=== PATIENT | female | born 1995 | race Caucasian/White ===

== ENCOUNTER 2022-09-07 12:14 | Emergency (ER) | payer OTHER, SELFPAY ==
[2022-09-07 12:32] VITALS: BP 139/87; PULSE 84; RESP 20; TEMP 36.9; O2SAT 100
--- NOTE | 2022-09-07 12:38 | ED.HEATRA ---
HPI - Head Injury General Chief complaint: Head Injury Stated complaint: Head injury at work on Thursday Time Seen by Provider: 09/07/22 12:43 Source: patient, RN notes reviewed and old records reviewed Mode of arrival: ambulatory Limitations: no limitations History of Present Illness HPI Narrative: 27-year-old female presents to the [facility] with complaints of a headache after a cardboard box fell on her head 2 days ago, Thursday. patient did not seek treatment. Denies any loss of consciousness. reports intermittent headaches since, when she had the same headache she gets a little dizzy. No blurry vision or change in vision. Patient is not on blood thinners. No bruising, swelling or redness noted to the top of her head where she reports pain. Related Data Home Medications Medication Instructions Recorded Confirmed No Home Medications 09/07/22 09/07/22 Allergies Allergy/AdvReac Type Severity Reaction Status Date / Time No Known Allergies Allergy Verified 09/07/22 12:44 Review of Systems Review of Systems: All systems reviewed & are unremarkable except as noted in HPI and below Constitutional: Constitutional: Reports no additional constitutional complaints, Denies chills and Denies fever(s) Eyes: Eyes: Reports no additional eye complaints ENT: Reports system reviewed and no additional complaints, except as documented Cardiovascular: Cardiovascular: Reports no additional cardiovascular complaints Respiratory: Respiratory: Reports no additional respiratory complaints Gastrointestinal: Gastrointestinal: Reports no additional gastrointestinal complaints Musculoskeletal: Musculoskeletal: Reports no additional musculoskeletal complaints Integumentary/Breasts: Skin/Breast: Reports system reviewed and no additional complaints, except as docu Neurologic: Reports as per HPI Psychiatric: Psychiatric: Reports no additional psychiatric complaints Allergic/Immunologic: Allergic/Immunologic: Reports no additional allergic/immunologic complaints PMFSH Comments At the time of my signature, I reviewed and agree with the nursing past medical, surgical, social, and family history. There is no relevant family history pertinent to the patient complaint. Exam Const: General: healthy appearing, comfortable, no acute distress, well developed, alert and well nourished Nutritional Appearance: well nourished and obese Orientation/consciousness: patient oriented x3 Limitations: no limitations HENMT: Head: normal to inspection Ears: external ears normal, TM's normal bilaterally and EAC's normal Face/Nose/Sinus: Normal external nose present and Normal nares present Face and sinus: normal facial exam Mouth: Yes Normal oral and palatal mucosa present, Yes lip normal and Yes moist mucous membranes Throat: posterior oropharynx normal and uvula midline Eyes: General: appearance normal, both eyes and all related structures Conjunctivae: conjunctivae normal Pupils: Equal, round and reactive pupils present EOM: EOMs intact bilaterally Direct Ophthalmoscopy: no photophobia Other: Lazy eye, born with, right Neck: Neck: normal visual inspection, full ROM, no lymphadenopathy and no meningeal signs Chest: Chest palpation & inspection: normal inspection of the chest Resp: Effort & Inspection: normal respiratory effort and no use of accessory muscles Auscultation: clear to auscultation bilaterally, no crackles, no rales, no rhonchi and no wheezes Cardio: Rate: regular rate Rhythm: regular rhythm GI: GI Palp: Yes Tenderness to palpation present (GI) Back/Spine/Pelvis: Cervical Spine: cervical ROM normal and No Cervical spine tenderness Thoracic/Lumbar Spine: thoracic and lumbar spine normal to inspection and thoraco-lumbar ROM normal Skin: General skin exam: normal color Rashes: no rashes Wounds: no wounds Neuro: General: patient oriented x3, moves all extremities, no meningeal signs and no focal motor deficits Cranial n
== END 2022-09-07 12:55 | disposition home or self-care (01) ==
PROVIDERS: Emergency Provider Nurse Practitioner
DX: S09.90XA Unspecified injury of head, initial encounter (principal); W20.8XXA Other cause of strike by thrown, projected or falling object, initial encounter
CPT/HCPCS: 99213; G0463

== ENCOUNTER 2025-03-08 17:08 | Emergency (ER) | payer OTHER, SELFPAY ==
--- OUTSIDE RECORDS SUMMARY | 2025-03-08 17:11 | XMS_ITS | Referral Summary ---
Author Organization [facility] Address [address] [place] [address] Care Team Providers Care Sleeve Machine Tender Name Role Phone Pranav Manzo MANDOLIN REPAIR PERSON Primary Care Provider [phone] Encounters Date Type Department Care Team Description 12/20/2024 10:30 AM DYE BLENDER Clinical Support Family Care at [address] [address] 12/16/2024 Telephone Family Care at [address] [address] Pranav Manzo NP Additional Services Or Orders 12/09/2024 Telephone [facility] [address] [address] Kimberly Sauer MD Myriad results from Last 3 Months Allergies No known active allergies Medications No known medications Active Problems Problem Noted Date Diagnosed Date Complete 11/21/2024 Assessment & Plan (11/21/2024 3:28 PM DYE BLENDER): Beta is negative Encounter for preconception consultation 025 Overview (11/21/2024): The pt is considering in the next year. To MVI No family history of neural tube defects or other defects. The patient was encouraged to be a healthy weight. The patient was encouraged to be in a healthy relationship She was encouraged to not use tobacco or marijuana. Varicella- she does not think she is vaccinated or had the chicken pox. To varicella and rubella titers Carrier screening discussed- they would like to do. To routine health maintenance labs Assessment & Plan (11/21/2024 3:29 PM DYE BLENDER): To rubella and varicella titers. To carrier screening. To routine labs Well woman exam 11/21/2024 Overview (11/21/2024): Lab: Pap:all normal No recent labs. Eric: Colonoscopy: BMD: Gardasil:did not have Assessment & Plan (11/21/2024 3:29 PM DYE BLENDER): Pap done. RTO 12m. I will send the results to the portal. If she has not heard in a week, to call the office. Morbid obesity with BMI of 40.0-44.9, adult 02/2024 Assessment & Plan (08/30/2024 2:34 PM DYE BLENDER): Wt Readings from Last 3 Encounters: 08/30/24 93.9 kg (207 lb) 03/01/24 90.1 kg (198 lb 9.6 oz) 01/06/23 90.7 kg (200 lb) BMI follow-up: Education provided Anxiety 02/23/2019 Assessment & Plan (08/30/2024 2:32 PM DYE BLENDER): Some increased anxiety with recent use of Mostly just nervous Continue to monitor, we did review SSRIs are safe in if needed Assessment & Plan (01/06/2023 2:23 PM CDT): Advised to wean off sertraline and follow up if not improving She can restart if not tolerating being off medication Assessment & Plan (07/08/2022 4:21 PM CDT): She will continue zoloft - this has been helpful and works well Chronic stable condition Assessment & Plan (08/07/2020 11:15 AM CDT): Pt states the 50 mg dose of zoloft has been helping. She should continue this dose and follow up in six months for evaluation Assessment & Plan (09/28/2019 12:24 PM DYE BLENDER): Condition stable Continue current medications Assessment & Plan (03/31/2019 8:07 AM CDT): - condition has improved with medication - continue zoloft and follow up in six months or sooner for any concerns Resolved Problems Problem Noted Date Diagnosed Date Resolved Date Less than 8 weeks gestation of 08/30/2024 11/21/2024 Assessment & Plan (08/30/2024 2:33 PM DYE BLENDER): Estimated last. Date 07/13/2024 Patient looking in to collet gluer (lives in [place] so looking at [facility]) Will place referral should that be needed Start vitamin daily Reviewed signs and symptoms to report Establish with collet gluer Class 2 severe obesity due t o excess calories with serious comorbidity and body mass index (BMI) of 38.0 to 38.9 in adult 07/08/2022 Assessment & Plan (03/01/2024 4:05 PM CDT): Plan for weight loss is to decrease calories in diet and increase activity Assessment & Plan (01/06/2023 2:22 PM CDT): Plan for weight loss is to decrease calories in diet and increase activity Assessment & Plan (07/08/2022 4:23 PM CDT): Plan for weight loss is to decrease calories in diet and increase activity BMI 31.0-31.9,adult 03/31/2019 08/30/20 24 Assessment & Plan (03/31/2019 8:07 AM CDT): - BMI too high, counseled on dietary approaches to lowering BMI, exercise approaches to lowering BMI, risk to health due to elevated BMI, healthy BMI level to trend toward. Acute costochondritis 01/13/20192024 Panic attack 01/13/2019 11/21/2024 Immunizations Immunization Administration Dates Next Due Influenza, Unspecified 10/09/2023(Deferr ed: Patient Refused),08/29/2023(Deferred: Patient Refused),05/26/2023(Deferred: Patient Refused),05/26/2023(Deferred: Patient Refused),01/06/2023(Deferred: Patient Refused),12/24/2021(Deferred: Patient Refused),07/26/2019(Deferred: Patient Refused),07/26/2018(Deferred: Patient Refused),07/26/2017(Deferred: Patient Refused) Tdap 07/08/2022(Deferred: Patient Ref used) Varicella 07/08/2022(Deferred: Patient Ref used) Social History Tobacco Use Types Packs/Day Years Used Date Smoking Tobacco: Never Smokeless Tobacco: Never Alcohol Use Standard Drinks/Week Comments Yes 0 (1 standard drink = 0.6 oz pur e alcohol) Humiliation, Afraid, Rape, and Kick questionnair e Answer Date Recorded Within the last year, have y ou been afraid of your partner or ex-partner? No 11/21/2024 Within the last year, have y ou been humiliated or emotionally abused in other ways by your partner or ex-partner? No Within the last year, have y ou been kicked, hit, slapped, or otherwise physically hurt by your partner or ex-partner? No 11/21/2024 Within the last year, have y ou been raped or forced to have any kind of sexual activity by your partner or ex-partner? 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 , Not on file Not on file Not on file Last Filed Vital Signs Vital Sign Reading Time Taken Comments Blood Pressure 122/80 11/21/2024 3:01 PM DYE BLENDER Pulse 89 08/30/2024 12:56 PM DYE BLENDER Temperature 36.7 C (98 F) 10/07/2022 2:38 PM DYE BLENDER Respiratory Rate 20 08/30/2024 12:56 PM DYE BLENDER Oxygen Saturation 97% 03/01/2024 10:19 AM CDT Inhaled Oxygen Concentration - - Weight 93.9 kg (207 lb) 11/21/2024 3:01 PM DYE BLENDER Height 152.4 cm (5') 11/21/2024 3:01 PM DYE BLENDER Body Mass Index 40.43 11/21/2024 3:01 PM DYE BLENDER Plan of Treatment Not on file Procedures Procedure Name Priority Date/Time Associated Diagnosis Comments PAP WITH REFLEX TO HIGH RISK HPV Routine 11/21/2024 9:43 AM DYE BLENDER Well woman exam SERUM HEPATITIS PANEL Routine 06/16/2013 12:14 PM CDT from Last 3 Months or Most Recently Relevant to Health Maintenance Results * Pap with reflex to High Risk HPV and Genotyping (Cytology Component) (11/21/2024 9:43 AM DYE BLENDER) Thin prep (Pap test) 11/21/2024 9:43 AM DYE BLENDER 11/22/2024 9:43 AM DYE BLENDER Narrative PATHOLOGY CH - 11/24/2024 9:16 AM DYE BLENDER [facility] Department of Pathology [address] [place] [address] Final Report Note to Patients: This report may contain a detailed description of human tissue sent by a health care provider to the laboratory for pathologic evaluation. The content of this report is essential for diagnosis and may provide important critical findings. This information may be unfamiliar to patients to review without a medical professional present. It is advised that the patient review this report in the presence of a health care provider who can answer questions and explain the details. Patient Name: MILAGROS SPIVEY Address: [address] [place] [address]- Gender: F : 1995 (Age: 29) Service: Location: [facility] #: [id number] Patient Type: SPECIMEN Taken: 11/21/2024 Received: 11/22/2024 Accessioned:: 11/22/2024 Reported: 11/24/2024 Physician(s): Kimberly Sauer M.D. Kimberly Sauer M.D. Diagnosis: SOURCE OF SPECIMEN Imaged Thinprep Pap Test w/ Reflex HPV - Production Inspector Cytologic Material: STATEMENT OF ADEQUACY - Satisfactory for evaluation; endocervical/transformation zone component present GENERAL CATEGORIZATION: - Negative for intraepithelial lesion or malignancy BORIS Fang(ASCP) Report Electronically Reviewed and Signed Out By BORIS Fang(ASCP) 11/24/2024 09:16:35Specimen(s) Received: A: Imaged Thinprep Pap Test w/ Reflex HPV - Production Inspector Cytologic Material Clinical History: Last Menstrual Period: 10/31/2024 The Pap test is a screening test used to aid in the detection of cervical cancer and its precursors. It should not be the sole means by which malignant and premalignant lesions are diagnosed. Both false negative and false positive results may occur. It also has poor sensitivity for the detection of endometrial lesions and should not be used to evaluate suspected endometrial abnormalities. For these reasons it is most important to obtain Pap tests at regular intervals. The performance characteristics of some immunohistochemical stains, fluorescence in-situ hybridization tests and immunophenotyping by flow cytometry cited in this report (if any) were determined by the Surgical Pathology Department at [facility] as part of an ongoing director quality systems program and in compliance with federally mandated regulations drawn from the Clinical Laboratory Improvement Act of 1988 (CLIA '88). Some of these tests rely on the use of analyte specific reagents and are subject to specific labeling requirements by the US Food and Drug Administration. Such diagnostic tests may only be performed in a facility that is certified by the Department of Health and Human Services as a high complexity laboratory under CLIA '88. The FDA has determined that such clearance or approval is not necessary. This test is used for clinical purposes. It should not be regarded as investigational or for research. Nevertheless, federal rules concerning the medical use of analyte specific reagents require that the following disclaimer be attached to the report: This test was developed and its performance characteristics determined by the Surgical Pathology Department [facility]. It has not been cleared or approved by the U. S. Food and Drug Administration. Kimberly Sauer MD LAB CYTOLOGY [place] [id number] [place] [address] * Serum Hepatitis panel (06/16/2013 12:14 PM CDT) HBV surface ag Negative Negative HISTO RICAL RESULTS HBV core ab, IgM Negative Negative HISTORICAL RESULTS HCV ab Negative Negative HISTORICAL RESULTS HAV ab, IgM Negative Negative HISTORIC AL RESULTS Serum 06/16/2013 12:1 4 PM CDT Lindsay Silva NP LAB BLOOD ORDERABLES Final Result HISTORICAL RESULTS from Last 3 Months or Most Recently Relevant to Health Maintenance Insurance [id number] CHOICE PLUS [facility] PPO [facility] HMO/PPO Address: [address] [place] [address] [facility] CHOICE PLUS Member Subscriber Plan / Payer (Ef fective 2024-Present) Name:Milagros Spivey Relation to Subscriber:Self Name:Milagros Spivey Payer ID:[id number] (IC) Type:[facility] HMO/PPO Address: [place] [phone] Care Teams Sleeve Machine Tender Relationship Specialty [place] [id number] [address] [facility] 2 [facility] [address] [place] [address] PCP - General Family Medicine 01/18/19
--- OUTSIDE RECORDS SUMMARY | 2025-03-08 17:11 | XMS_ITS | Clinical Summary ---
Author Organization [facility] Address [address] [place] [address] Care Team Providers Care Lead Refiner Name Role Phone Pranav Manzo NP Primary Care Provider [phone] Allergies No known active allergies Medications No known medications Active Problems Problem Noted Date Diagnosed Date Complete 11/21/2024 Assessment & Plan (11/21/2024 3:28 PM ELECTRONICS DETAIL DRAFTSPERSON): Beta is negative Encounter for preconception consultation [...] labs Assessment & Plan (11/21/2024 3:29 PM ELECTRONICS DETAIL DRAFTSPERSON): To rubella and varicella titers. To carrier screening. To routine labs Well woman exam 11/21/2024 Overview (11/21/2024): Lab: Pap:all normal No recent labs. Eric: Colonoscopy: BMD: Gardasil:did not have Assessment & Plan (11/21/2024 3:29 PM ELECTRONICS DETAIL DRAFTSPERSON): Pap done. RTO 12m. I will send the results to the portal. If she has not heard in a week, to call the office. Morbid obesity with BMI of 40.0-44.9, adult 02/2024 Assessment & Plan (08/30/2024 2:34 PM ELECTRONICS DETAIL DRAFTSPERSON): Wt Readings from Last 3 Encounters: 08/30/24 93.9 kg (207 lb) 03/01/24 90.1 kg (198 lb 9.6 oz) 01/06/23 90.7 kg (200 lb) BMI follow-up: Education provided Anxiety 02/23/2019 Assessment & Plan (08/30/2024 2:32 PM ELECTRONICS DETAIL DRAFTSPERSON): Some increased anxiety with recent use of [...] evaluation Assessment & Plan (09/28/2019 12:24 PM ELECTRONICS DETAIL DRAFTSPERSON): Condition stable Continue current medications Assessment & Plan (03/31/2019 8:07 AM CDT): - condition has improved with medication - continue zoloft and follow up in six months or sooner for any concerns Resolved Problems Problem Noted Date Diagnosed Date Resolved Date Less than 8 weeks gestation of 08/30/2024 11/21/2024 Assessment & Plan (08/30/2024 2:33 PM ELECTRONICS DETAIL DRAFTSPERSON): Estimated last. Date 07/13/2024 Patient looking in to international relations professor (lives in [place] so looking at [place] or [facility]) Will place referral should that be needed Start vitamin daily Reviewed signs and symptoms to report Establish with international relations professor Class 2 severe obesity due t o excess calories with serious comorbidity and body mass index (BMI) of 38.0 to 38.9 in adult 07/08/2022 4 Assessment & Plan (03/01/2024 4:05 PM CDT): [...] Acute costochondritis 01/13/20192024 Panic attack 01/13/2019 11/21/2024 Encounters Date Type Department Care Team Description 12/20/2024 10:30 AM ELECTRONICS DETAIL DRAFTSPERSON Clinical Support Family Care at [address] [address] 12/16/2024 Telephone [facility] at [address] [address] Pranav Manzo NP Additional Services Or Orders 12/09/2024 Telephone [facility] [employer] [address] [place] [phone] Kimberly Sauer MD Myriad results from Last 3 Months Immunizations Immunization Administration Dates Next Due Influenza, Unspecified 10/09/2023(Deferr ed: Patient Refused),08/29/2023(Deferred: Patient Refused),05/26/2023(Deferred: Patient Refused),05/26/2023(Deferred: Patient Refused),01/06/2023(Deferred: Patient Refused),12/24/2021(Deferred: Patient Refused),07/26/2019(Deferred: Patient Refused),07/26/2018(Deferred: Patient Refused),07/26/2017(Deferred: Patient Refused) Tdap 07/08/2022(Deferred: Patient Ref used) Varicella 07/08/2022(Deferred: Patient Ref used) Medical History Medical History Date Comments Anxiety Panic attack 01/13/2019 Family History Medical History Relation Name Comments Other Father Alive and well; Bone cancer Father's Brother 2 Cancer; C ause of : Cancer Hypertension Mother Hypertension; Bone cancer Paternal Grandfather Cancer; Heart disease Paternal Grandfather Heart disease; Hypertension Paternal Grandfather Hyperte nsion; Other Paternal Grandmother Alive a nd well; Cancer Neg Hx no colon, breas t or demonstrator sewing techniques cancer cmt 11/21/24 Relation Name Status Comments Father Alive Father's Brother 1 Father's Brother 2 Mother Paternal Grandfather Paternal Grandmother Alive Social History Tobacco Use Types Packs/Day Years [...] on file Legal Sex Female 2:35 AM ELECTRONICS DETAIL DRAFTSPERSON Gender Identity Not on file Sexual Orientation Not on file Occupation Industry Job Start Date Job End Date [employer]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 , Not on file Not on file Not on file Obstetrics History Para Term AB IAB SAB Ectopic Multiple Livin g Live Births 1 0 0 0 0 0 0 0 0 0 0 Date Outcome GA Total Labor Labor/2nd/3rd Weight Sex Type Anes PTL Kristan A1 A5 Name Clin Last Filed Vital Signs Vital Sign Reading Time Taken Comments Blood Pressure 122/80 11/21/2024 3:01 PM ELECTRONICS DETAIL DRAFTSPERSON Pulse 89 08/30/2024 12:56 PM ELECTRONICS DETAIL DRAFTSPERSON Temperature 36.7 C (98 F) 10/07/2022 2:38 PM ELECTRONICS DETAIL DRAFTSPERSON Respiratory Rate 20 08/30/2024 12:56 PM ELECTRONICS DETAIL DRAFTSPERSON Oxygen Saturation 97% 03/01/2024 10:19 AM CDT Inhaled Oxygen Concentration - - Weight 93.9 kg (207 lb) 11/21/2024 3:01 PM ELECTRONICS DETAIL DRAFTSPERSON Height 152.4 cm (5') 11/21/2024 3:01 PM ELECTRONICS DETAIL DRAFTSPERSON Body Mass Index 40.43 11/21/2024 3:01 PM ELECTRONICS DETAIL DRAFTSPERSON Plan of Treatment Health Maintenance Due Date Last Done Comments DTaP/Tdap/Td Vaccine (1 - Tdap) 2006 Varicella Vaccines (1 of 2 - 13+ 2-dose series) 01/23/2008 Hepatitis B Screening 2013 Regular Well Visit/Exam 18-64 02/05/2022 02/05/2021, 11/22/2019 Influenza Vaccine (Season Ended) 2025 Cervical Cancer Screening 11/21/2025 11/21/2024 Depression Screening 11/21/2025 11/21/2024, 08/30/2024, 08/30/2024, Additional history exists Hepatitis C Screening Completed 06/16/2013 HPV Vaccines Aged Out No longer eligi ble based on patient's age to complete this topic Pneumococcal vaccine <65 Aged Out No longer eligible based on patient's age to complete this topic Procedures Procedure Name Priority Date/Time Associated Diagnosis Comments PAP WITH REFLEX TO HIGH RISK HPV Routine 11/21/2024 9:43 AM ELECTRONICS DETAIL DRAFTSPERSON Well woman exam SERUM HEPATITIS PANEL Routine 06/16/2013 12:14 PM CDT from Last 3 Months or Most Recently Relevant to Health Maintenance Results * Pap with reflex to High Risk HPV and Genotyping (Cytology Component) (11/21/2024 9:43 AM ELECTRONICS DETAIL DRAFTSPERSON) Thin prep (Pap test) 11/21/2024 9:43 AM ELECTRONICS DETAIL DRAFTSPERSON 11/22/2024 9:43 AM ELECTRONICS DETAIL DRAFTSPERSON Narrative PATHOLOGY CH - 11/24/2024 9:16 AM ELECTRONICS DETAIL DRAFTSPERSON [facility] Department of Pathology [address] [place] [id number] Final Report Note to Patients: This report [...] the details. Patient Name: MILAGROS SPIVEY Address: [address] [place] [address]- Gender: F : 1995 (Age: 29) Service: Location: [facility] : [id number] [facility] #: [id number] Patient Type: SPECIMEN Taken: 11/21/2024 Received: 11/22/2024 Accessioned:: 11/22/2024 Reported: 11/24/2024 Physician(s): Teresa Brantley M.D. Diagnosis: SOURCE OF SPECIMEN Imaged Thinprep Pap Test w/ Reflex HPV - Photocopying Equipment Mechanic Cytologic Material: STATEMENT OF ADEQUACY - Satisfactory for evaluation; endocervical/transformation zone component present GENERAL CATEGORIZATION: - Negative for intraepithelial lesion or malignancy BORIS Fang(ASCP) Report Electronically Reviewed and Signed Out By BORIS Fang(ASCP) 11/24/2024 09:16:35Specimen(s) Received: A: Imaged Thinprep Pap Test w/ Reflex HPV - Photocopying Equipment Mechanic Cytologic Material Clinical History: Last Menstrual Period: [...] determined by the Surgical Pathology Department at [facility] as part of an ongoing quality control microbiology supervisor program and in compliance with federally mandated [...] characteristics determined by the Surgical Pathology Department [facility]. It has not been cleared or approved by the U. S. Food and Drug Administration. Kimberly Sauer MD LAB CYTOLOGY ORDERA BLES Final Result PATHOLOGY [address] [place] [address] * Serum Hepatitis panel (06/16/2013 12:14 PM CDT) HBV surface ag Negative Negative HISTO RICAL RESULTS HBV core ab, IgM Negative Negative HISTORICAL RESULTS HCV ab Negative Negative HISTORICAL RESULTS HAV ab, IgM Negative Negative HISTORIC AL RESULTS Serum 06/16/2013 12:1 4 PM CDT [facility] MATERIALS AND CORROSION ENGINEER LAB BLOOD ORDERABLES Final Result HISTORICAL RESULTS from Last 3 Months or Most Recently Relevant to Health Maintenance Insurance [facility] CHOICE PLUS [facility] H[facility]/PPO Address: [id number] [place] [address] PPO [facility] CHOICE PLUS [facility] H[facility]/PPO Address: [address] [place] [id number] Care Teams Lead Refiner Relationship Specialty [place] [address] [facility] [address] [place] [address] PCP - General Family Medicine 01/18/19
--- NOTE | 2025-03-08 17:12 | ED.LOWEXIN ---
HPI - Extremity Injury (Lower) General Chief Complaint: Extremity Injury, Lower Stated Complaint: finger pain Related Data Home Medications Medication Instructions Recorded Confirmed Last Taken Type No Home Medications 09/07/22 03/08/25 Unknown History Allergies Allergy/AdvReac Type Severity Reaction Status Date / Time No Known Allergies Allergy Verified 03/08/25 17:11 Discharge Plan Discharge Patient Language: Portuguese Prescriptions: No Action No Home Medications Follow-up/Referrals: UNKNOWN,DOCTOR [Primary Care Provider] -
[2025-03-08 17:15] VITALS: BP 151/96; PULSE 92; RESP 16; TEMP 36.5; O2SAT 100
--- NOTE | 2025-03-08 17:19 | ED_ITS ---
HPI - Extremity Injury (Upper) General Chief Complaint: Extremity Injury, Lower Stated Complaint: finger pain Time Seen by Provider: 03/08/25 17:20 Source: patient and RN notes reviewed Mode of arrival: ambulatory Limitations: no limitations History of Present Illness HPI narrative: 30-year-old female presents with concern for pain to the 3rd digit of the right hand. She denies injury or trauma. She reports she works at [email or web address] and does repetitive movements. She denies any history of carpal tunnel or chronic pain. She denies warmth, redness, swelling. She denies decreased sensation, strength, Saint range of motion in the digit. She reports pain with flexion. She denies open skin or rash MD complaint: injury to: right and finger Related Data Home Medications Medication Instructions Recorded Confirmed Last Taken Type No Home Medications 09/07/22 03/08/25 Unknown History Allergies Allergy/AdvReac Type Severity Reaction Status Date / Time No Known Allergies Allergy Verified 03/08/25 17:19 Review of Systems Review of Systems: CONSTITUTIONAL: Denies malaise, chills, sweats, or fever. SKIN: Denies rash or itching, open skin, laceration, abrasion, redness, warmth, swelling. MUSCULOSKELETAL: Reports pain in left 3rd digit of the right hand NEUROLOGIC: Denies numbness, weakness All systems reviewed & are unremarkable except as noted in HPI and below PMFSH Comments At time of signature, agree with nursing past medical, surgical, social and family history. There is no relevant family history pertinent to the presenting complaint Exam Narrative: GENERAL: Well-appearing, well-nourished, and in no acute distress. HEAD: Normocephalic EYES: PERRLA, conjunctivae clear NECK: Supple. CHEST: Speaks in full sentences. No respiratory distress. HEART: Regular rate and rhythm. Normal and equal peripheral pulses. EXTREMITIES: Right hand and digits of hand have normal strength and sensation. 5/5 strength with digit flexion, extension. Range of motion normal. No clubbing, cyanosis, or edema noted. No tenderness. Skin intact. Normal digital cascade with flexion of fingers, median, ulnar and radial nerve intact. Normal sensation of each side of finger. Can perform 'okay' sign, 'cross over finger test of index and middle fingers' and 'thumbs up' sign. No scissoring. Normal thumb opposition. Good capillary refill and radial pulse. Distal capillary refill less than 3 seconds. Patient is right/left hand dominant SKIN: Warn, dry, intact, pink. No rash NEURO: Alert and oriented x3. PSYCH: Normal mood and affect Course Course Emergency Course: Patient is aware of diagnosis, understands and agrees to treatment plan. Anticipatory guidance given. Patient agrees to follow-up as directed and is aware of reasons to seek care at the emergency department. Portions of this record may have been created with voice recognition software Level of Care: Express Care Visit Vital Signs Vital signs: Vital Signs Temperature 97.7 F 03/08/25 17:15 Pulse Rate 92 03/08/25 17:15 Respiratory Rate 16 03/08/25 17:15 Blood Pressure 151/96 H 03/08/25 17:15 Pulse Oximetry 100 03/08/25 17:15 Oxygen Delivery Room Air 03/08/25 17:15 Temperature 97.7 F 03/08/25 17:15 Pulse Rate 92 03/08/25 17:15 Respiratory Rate 16 03/08/25 17:15 Blood Pressure 151/96 H 03/08/25 17:15 Pulse Oximetry 100 03/08/25 17:15 Oxygen Delivery Room Air 03/08/25 17:15 Reviewed. MDM - Extremity Injury (Upper) MDM Narrative Medical decision making narrative: Patients pain is consistent with musculoskeletal etiology. No signs of neurological or vascular compromise on exam. Compartments and tissues are soft without signs of compartment syndrome. Pain is felt appropriate for further evaluation on an outpatient basis. Critical Care Time Critical Care Time Critical Care Time: No Discharge Plan Discharge Clinical Impression: Tendinitis Patient Disposition: Home Condition: Stable Instructions: Tendinitis (ED) Additional Instructions: Avoid activities that cause pain until the pain subsides. Ice to the area 20-30 minutes 4-6 times a day Elevate above heart Orthopedic splint as directed for comfort for the next 5-7 days Tylenol for lesser pain Ibuprofen regularly for the next 2-3 days for the inflammation Follow up with your primary care provider if the condition is not improving within 1 week. If the condition worsens with numbness, tingling, decrease sensation with weakness seek treatment in the emergency room immediately. Patient Language: Bolivian Prescriptions: No Action No Home Medications Follow-up/Referrals: UNKNOWN,DOCTOR [Primary Care Provider] - Time of Disposition: 17:32
== END 2025-03-08 17:38 | disposition home or self-care (01) ==
PROVIDERS: Emergency Provider Nurse Practitioner
DX: M77.8 Other enthesopathies, not elsewhere classified (principal); H53.001 Unspecified amblyopia, right eye
CPT/HCPCS: 29130; 99212; G0463